=== PATIENT | female | born 1970 | race Caucasian/White ===

== ENCOUNTER 2017-05-06 07:48 | Emergency (ER) | payer SELFPAY ==
[~2017-05-06] VITALS: Ht 167.6 cm; Wt 63.5 kg
[~2017-05-06 07:48] MED LIST: ALB17R INH; AMI10 PO; BUTNAS NS; CIP500 PO; GUAI-225 PO; LEV500 PO; MOMR; PER PO; PRE20 PO; TOPI25TA PO
[2017-05-06 07:52] VITALS: BP 140/99
--- NOTE | 2017-05-06 07:56 | ER Report ---
History and Physical Time Seen By MD: 07:54 HPI/ROS CHIEF COMPLAINT: Medication refil HISTORY OF PRESENT ILLNESS: 46-year-old female reports moving from [place] 8 months ago has been on Subutex for the past 9 years and is requesting a refill. She explained that she called the narcotic hotline and they referred her to this facility. Denies medical problems otherwise. She says the nearest place to get a refill except for here is [facility] does not want to go down there. She says she moved to [facility] 8 months ago and has not gotten set up with a doctor to refill this prescription. She says she cannot go back to [place] to get it refilled. She has been on this medication for pain issues. REVIEW OF SYSTEMS: Respiratory: No cough, no dyspnea. Cardiovascular: No chest pain, no palpitations. Gastrointestinal: No vomiting, no abdominal pain. Musculoskeletal: No back pain. Allergies: Coded Allergies: Penicillins (Verified Allergy, Intermediate, RASH, 05/06/17) Sulfa (Sulfonamide Antibiotics) (Verified Allergy, Intermediate, RASH, 05/06) cefuroxime (Verified Allergy, Intermediate, RASH, 05/06/17) ketorolac (Verified Allergy, Intermediate, SHORTNESS OF BREATH, 05/06/17) tramadol (Verified Allergy, Intermediate, SHORTNESS OF BREATH, 05/06/17) Home Meds Reported Medications [Subutex] No Conflict Check, 8 TID 05/06/17 Discontinued Reported Medications Oxycodone/Acetaminophen (OXYCODONE/ACETAMINOPHEN 5MG/325 MG) 5 Mg/325 Mg Tab, 0 PO Q4-6H 1-2 TABLETS 04/18/07 Oxycodone/Acetaminophen (OXYCODONE/ACETAMINOPHEN 5MG/325 MG) 5 Mg/325 Mg Tab, 0 PO Q4-6H 1-2 TABLETS EVERY 4 HOURS NEEDED FOR PAIN 04/17/07 Prednisone (Prednisone) 20 Mg Tab, 40 MG PO QDAY DAILY FOR 4 DAYS 04/17/07 Ciprofloxacin (Cipro) 500 Mg Tab, 500 MG PO BIDAC TWICE DAILY FOR 7 DAYS 04/17/07 Oxycodone/Acetaminophen (OXYCODONE/ACETAMINOPHEN 5MG/325 MG) 5 Mg/325 Mg Tab, 1 TAB PO Q4-6H 04/15/07 Butorphanol Tartrate (Stadol Ns) 10 Mg/Ml Driver, 10 MG NS 1 SPRAY IN 1 NOSTRIL EVERY 4 HOURS NEEDED 04/13/07 Amitriptyline Hcl (Elavil) 10 Mg Tab, 10 MG PO QHS 03/28/07 Topiramate (Topamax) 25 Mg Tablet, 25 MG PO QDAY SPRINKLE 03/28/07 Constitutional Vital Sign - Last 24 Hours 05/06/17 07:52 Temp 96.8 Pulse 87 Resp 20 B/P (MAP) 140/99 Pulse Ox 98 O2 Delivery Room Air Physical Exam General Appearance: The patient is alert, has no immediate need for airway protection and no current signs of toxicity. Negative for signs of acute withdrawal Eyes: Pupils equal and round no injection. Respiratory: Chest is non tender, lungs are clear to auscultation. Cardiac: No perfusion problems Gastrointestinal: No obvious distention Musculoskeletal: Neck: Neck is supple and non tender. Extremities have full range of motion and are non tender. Skin: No rashes or lesions. No edema DIFFERENTIAL DIAGNOSIS: After history and physical exam differential diagnosis was considered for drug seeking behavior, narcotic addiction, needs help with medication refill Medical Decision Making ED Course/Re-evaluation ED Course ED times standby explained to patient that we do not know with Suboxone here and that she needs to see a physician experienced with Suboxone prescribing. I encouraged her to follow up at the nearest facility and offered to provide information. Decision to Disposition Date: May 06, 2017 Decision to Disposition Time: 08:15 Depart Departure Latest Vital Signs Vital Signs Date Time Temp Pulse Resp B/P (MAP) Pulse Ox O2 Delivery O2 Flow Rate FiO2 05/06/17 07:52 96.8 87 20 140/99 98 Room Air Impression: Primary Impression: Chronic pain disorder Condition: Improved Disposition: HOME OR SELF-CARE Patient Instructions: GENERAL ER DISCHARGE INSTRUCTIONS PENELOPE WATTERS MD May 06, 2017 07:56
[2017-05-06] MEDS ORDERED: SUBUTEX (07:57)
== END 2017-05-06 08:25 | disposition home or self-care (01) ==
LOC: ER 07:56
DX: G89.29 Other chronic pain (principal)
CPT/HCPCS: 99281

== ENCOUNTER 2018-02-22 04:39 | Emergency (ER) | payer SELFPAY ==
[~2018-02-22 04:39] MED LIST changes: +SUBUTEX
[2018-02-22 04:44] VITALS: BP 158/103
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
[2018-02-22] MEDS ORDERED: DIPHTH/TETANUS/ACEL. PERTUSSIS IM ONLY ONE (04:50)
--- NOTE | 2018-02-22 05:42 | RADIOLOGY IMAGING REPORT ---
FACILITY: [facility] [place] PATIENT NAME: Ana Beard : 1970 MR: [id number] V: [id number] EXAM DATE: ORDERING PHYSICIAN: UMAIR HARO TECHNOLOGIST: Location: [facility] Patient: Ana Beard : 1970 Visit/Account:[id number] Date of Sevice: 02/22/2018 HAND: Indication: Injury. Technique: 3 views were obtained. Comparison: None. Findings: There is no evidence of fracture, dislocation, or other acute deformity. There is uniform m ineralization of the skeletal structures. There are no signs of joint space narrowing or spur formati on. There are no signs of soft tissue deformity or calcification. IMPRESSION: Negative left hand. Report Dictated By: Rl Marrero MD at 02/22/2018 5:37 AM Report E-Signed By: Rl Marrero MD at 02/22/2018 5:38 AM WSN:[id number]
--- NOTE | 2018-02-22 05:52 | RADIOLOGY IMAGING REPORT ---
FACILITY: [facility] PATIENT NAME: Ana Beard : 1970 MR: [id number] V: [id number] EXAM DATE: ORDERING PHYSICIAN: UMAIR HARO TECHNOLOGIST: Location: [facility] [place] Patient: Ana Beard : 1970 Visit/Account:[id number] Date of Sevice: 02/22/2018 EXAMINATION: CT Head without intravenous contrast CT Face without intravenous contrast HISTORY: Trauma. TECHNIQUE: Head: Axial images were obtained from the skull base to the vertex without intravenous contrast. Sa gittal and coronal reformatted images are also submitted. Face: Axial images were obtained from the superior aspect of the orbits through the inferior aspect of mandible. Coronal and sagittal reformatted images were obtained from the axial source data. One of the following dose optimization techniques was utilized in the performance of this exam: Autom ated exposure control; adjustment of the mA and/or kV according to the patient's size; or use of an i terative reconstruction technique. Specific details can be referenced in the facility's radiology C T exam operational policy. COMPARISON: None available. FINDINGS: HEAD: Brain volume: Normal. Ventricles: Negative. Acute ischemic changes: None. Hemorrhage: None. Masses / edema: None. Cheatham-white: Negative. White matter: Negative. Vessels: Negative. Extra-axial: Negative. Calvarium / skull base: Negative. FACE: Soft Tissues: Mild soft tissue swelling in the upper face. Mandible / TMJ: Negative. Maxillae / pterygoid plates: Negative. Zygoma / zygomatic arches: Negative. Orbits: Negative. Nasal bones / nasal septum: Age-indeterminate minimally displaced nasal fracture. Leftward nasal sept al deviation. Frontal bones: Negative. Sinuses: Postop left middle turbinectomy and medial maxillary antrostomy. Small polyps or cysts in th e left maxillary sinus and sphenoid sinuses. Minimal mucosal thickening in the right maxillary sinus. IMPRESSION: 1. Mild soft tissue swelling in the upper face. 2. Age-indeterminate minimally displaced nasal fracture. 3. No acute intracranial abnormality. Report Dictated By: Rayray Marsh MD at 02/22/2018 5:38 AM Report E-Signed By: Rayray Marsh MD at 02/22/2018 5:48 AM WSN:[id number]
--- NOTE | 2018-02-22 05:53 | RADIOLOGY IMAGING REPORT ---
FACILITY: [facility] [place] PATIENT NAME: Ana Beard : 1970 MR: [id number] V: [id number] EXAM DATE: ORDERING PHYSICIAN: UMAIR HARO TECHNOLOGIST: Location: [facility] Patient: Ana Beard : 1970 Visit/Account:[id number] Date of Sevice: 02/22/2018 EXAMINATION: CT Head without intravenous contrast CT Face without intravenous contrast HISTORY: Trauma. TECHNIQUE: Head: Axial images were obtained from the skull base to the vertex without intravenous contrast. Sa gittal and coronal reformatted images are also submitted. Face: Axial images were obtained from the superior aspect of the orbits through the inferior aspect of mandible. Coronal and sagittal reformatted images were obtained from the axial source data. One of the following dose optimization techniques was utilized in the performance of this exam: Autom ated exposure control; adjustment of the mA and/or kV according to the patient's size; or use of an i terative reconstruction technique. Specific details can be referenced in the facility's radiology C T exam operational policy. COMPARISON: None available. FINDINGS: HEAD: Brain volume: Normal. Ventricles: Negative. Acute ischemic changes: None. Hemorrhage: None. Masses / edema: None. Cheatham-white: Negative. White matter: Negative. Vessels: Negative. Extra-axial: Negative. Calvarium / skull base: Negative. FACE: Soft Tissues: Mild soft tissue swelling in the upper face. Mandible / TMJ: Negative. Maxillae / pterygoid plates: Negative. Zygoma / zygomatic arches: Negative. Orbits: Negative. Nasal bones / nasal septum: Age-indeterminate minimally displaced nasal fracture. Leftward nasal sept al deviation. Frontal bones: Negative. Sinuses: Postop left middle turbinectomy and medial maxillary antrostomy. Small polyps or cysts in th e left maxillary sinus and sphenoid sinuses. Minimal mucosal thickening in the right maxillary sinus. IMPRESSION: 1. Mild soft tissue swelling in the upper face. 2. Age-indeterminate minimally displaced nasal fracture. 3. No acute intracranial abnormality. Report Dictated By: Rayray Marsh MD at 02/22/2018 5:38 AM Report E-Signed By: Rayray Marsh MD at 02/22/2018 5:48 AM WSN:[id number]
== END 2018-02-22 06:15 | disposition home or self-care (01) ==
LOC: ER 05:34
DX: S00.83XA Contusion of other part of head, initial encounter (principal); S00.81XA Abrasion of other part of head, initial encounter; S02.2XXA Fracture of nasal bones, initial encounter for closed fracture; W01.198A Fall on same level from slipping, tripping and stumbling with subsequent striking against other object, initial encounter
CPT/HCPCS: 70450; 70486; 90471; 90715; 99284